=== PATIENT | female | born 1945 | race Caucasian/White ===

== ENCOUNTER 2021-11-03 11:38 | Outpatient (CLI) | payer MEDICARE, SELFPAY ==
[2021-11-03 15:11] LABS: Free T4 Free Thyroxine 1.19 ng/mL (0.78-2.19); Vitamin D 25 Hydroxy 36.3 ng/mL
[2021-11-08 13:43] LABS: Thyroid Stimulating Immunoglob 208 % baseline (<140)
== END 2021-11-03 11:39 | disposition home or self-care (01) ==
LOC: ANHWCLAB 11:41
PROVIDERS: PCP Family Medicine; Referring Provider Internal Medicine Endocrinology, Diabetes & Metabolism; Visit Provider Internal Medicine Endocrinology, Diabetes & Metabolism
DX: Z78.0 Asymptomatic menopausal state (principal); E05.90 Thyrotoxicosis, unspecified without thyrotoxic crisis or storm; E04.1 Nontoxic single thyroid nodule; R79.89 Other specified abnormal findings of blood chemistry; E55.9 Vitamin D deficiency, unspecified
CPT/HCPCS: 36415; 82306; 84439; 84443; 84445

== ENCOUNTER 2022-11-24 12:03 | Outpatient (CLI) | payer MEDICARE, SELFPAY ==
[2022-11-24 17:35] LABS: Free T4 Free Thyroxine 1.27 ng/mL (0.78-2.19)
== END 2022-11-24 12:04 | disposition home or self-care (01) ==
LOC: ANHWCLAB 12:04
PROVIDERS: PCP Family Medicine; Visit Provider Internal Medicine Endocrinology, Diabetes & Metabolism
DX: E05.90 Thyrotoxicosis, unspecified without thyrotoxic crisis or storm (principal)
CPT/HCPCS: 36415; 84439; 84443